=== PATIENT | female | born 1945 | race Caucasian/White ===

== ENCOUNTER 2018-05-24 10:05 | Outpatient (RCR) | payer MEDICARE ==
--- NOTE | 2018-05-17 13:19 | NUR ---
S/O: GELY STOKES is a 73 year old Female who presented to cardiac/pulmonary consult. Her past medical history and current medications and treatment were discussed. A/P: All medications in patient's chart were viewed. No corrections were needed . Patient has good understanding of prescribed medications. The patient had the following questions or concerns: Mrs. Stokes was concerned about muscle discomfort she had been experiencing with her Atorvastatin. Counseled patient that some discomfort is normal, but to bring up her concerns with her PCP at the next visit when her labs are taken and there might be something over the counter she can use to relieve discomfort if she is to stay on the medication. Patient also expressed she had recently been started on Lisinopril after her heart surgery and had been experiencing a cough since starting the medication. Explained to her that this is normal for some people to experience and if the cough really starts bothering her to let her PCP know and there may be other blood pressure options for her that are less likely to cause this cough side effect. The patient indicated that she has experienced the following side effects: Muscle discomfort and Cough. It was recommended that she bring her concerns to her PCP as these are common side effects of her current medication therapy and there may be other options that are less likely to cause these side effects. Potential side effects were discussed such as: Symptoms of low blood sugar, ACEI side effects, Statin side effects. How to monitor her disease states effectively through blood pressure and sugar monitoring. The patient was instructed to contact pharmacy if she had further questions at a next visit.
[~2018-05-24 10:05] MED LIST: ALLOPURINOL300 MG PO; AMARYL2 MG PO; AMARYL4 MG PO; AMLOD/BENAZP1 CA2 PO; ANTIVERT OR; ANTIVERT PO; ANTIVERT25 MG PO; ASPIRIN81 MG PO; ATIVAN0.5 MG OR; BENADRYL 50MG C50 MG OR; CARVEDILOL25 MG PO; CEPHALEXIN500 MG OR; CYANOCOBALAM1000 MCG IM; DIFLUCAN150 MG PO; FENOFIBRATE134 MG; FENOFIBRATE134 MG PO; FLEXERIL PO; FLEXERIL10 MG PO; FUROSEMIDE40 MG PO; GLIPIZIDE10 MG PO; GLIPIZIDE5 MG PO; GLUCOPHAGE500 MG PO; HYDRALAZINE50 MG PO; INVOKANA300 MG PO; JANUVIA100 MG PO; LEVOTHYROXIN100 MCG PO; LEVOTHYROXIN125 MCG PO; LIPITOR10 M1 PO; LISINOPRIL10 MG PO; LOPRESSOR50 MG PO; LORAZEPAM0.5 MG PO; LORAZEPAM1 MG PO; LORTAB 5 OR; LOTREL 2.5/101 CAP PO; LOTREL1 CA1 PO; MACRODANTIN100 MG OR; MAG OXIDE400 MG PO; METFORMIN500 MG PO; METOPROLOL TART50 MG PO; NEOSPORIN28 GM EX; RENA-VIT1 PO; TAM75CAP PO; TOPROL XL50 MG OR; TRICOR48 MG OR; TRULICITY0.75 MG/0.; ULTRAM50 M1 OR; VICTOZA18 MG/3 ML SC; ZITHROMAX500 MG OR
== END 2018-05-24 11:35 | disposition still patient (30) ==
LOC: CR 10:05
PROVIDERS: ATTEND Internal Medicine Cardiovascular Disease
DX: Z95.1 Presence of aortocoronary bypass graft (principal)

== ENCOUNTER 2018-09-01 08:23 | Day surgery (SDC) | payer MEDICARE ==
[2018-09-01 10:32] VITALS: BP 151/69
== END 2018-09-01 10:51 | disposition home or self-care (01) ==
LOC: ENDO 08:23 → ORM 19:50 → ENDO 19:50 → ORM 21:15
PROVIDERS: ATTEND Internal Medicine Gastroenterology
PROC: 0DBG8ZX Excision of Left Large Intestine, Via Natural or Artificial Opening Endoscopic, Diagnostic (ICD-10-PCS; principal; 2018-09-01)
PROC: 0DBF8ZX Excision of Right Large Intestine, Via Natural or Artificial Opening Endoscopic, Diagnostic (ICD-10-PCS; 2018-09-01)
PROC: 0DB98ZX Excision of Duodenum, Via Natural or Artificial Opening Endoscopic, Diagnostic (ICD-10-PCS; 2018-09-01)
PROC: 0DB78ZX Excision of Stomach, Pylorus, Via Natural or Artificial Opening Endoscopic, Diagnostic (ICD-10-PCS; 2018-09-01)
PROC: 0DB48ZX Excision of Esophagogastric Junction, Via Natural or Artificial Opening Endoscopic, Diagnostic (ICD-10-PCS; 2018-09-01)
DX: R19.7 Diarrhea, unspecified (principal); D64.9 Anemia, unspecified; K64.4 Residual hemorrhoidal skin tags; K64.8 Other hemorrhoids; K29.70 Gastritis, unspecified, without bleeding; K20.9 Esophagitis, unspecified; K44.9 Diaphragmatic hernia without obstruction or gangrene; K29.50 Unspecified chronic gastritis without bleeding; E11.9 Type 2 diabetes mellitus without complications; I10 Essential (primary) hypertension

== ENCOUNTER 2020-07-30 14:39 | Emergency (ER) | payer MEDICARE ==
[2020-07-30 14:39] VITALS: BP 93/52
[2020-07-30 15:50] LABS: HEMATOCRIT 32.4 % (37.0-47.0); HEMOGLOBIN 10.6 g/dl (12.0-16.0); IMMATURE GRANULOCYTES 0.2 % (0.0-5.0); MEAN CELL VOLUME 99.7 fL CALC (80.0-100.0); MEAN CORPUSCULAR HGB 32.6 pG CALC (26.0-32.0); MEAN CORPUSCULAR HGB CONC 32.7 g/dL CAL (32.0-36.0); NEUT# 3.46 thou/uL (2.00-7.15); RED BLOOD COUNT 3.25 mill/uL (4.20-5.60); RED CELL DISTRI WIDTH 15.1 % (11.5-15.5)
[2020-07-30 16:06] LABS: ALBUMIN 3.7 g/dL (3.2-5.0); CREATININE 1.5 mg/dL (0.5-1.0); MAGNESIUM 1.6 mg/dL (1.6-2.3); POTASSIUM 4.7 mmol/l (3.5-5.1); TOTAL PROTEIN 6.8 g/dL (6.3-8.2)
[2020-07-30 16:15] LABS: BILIRUBIN, TOTAL 0.6 mg/dL (0.0-1.4)
[2020-07-30 16:30] LABS: ACT PARTIAL THROMBO TIME 23.7 SECONDS (20.0-32.5); PROTHROMBIN TIME 10.3 SECONDS (9.0-12.5)
== END 2020-07-30 17:23 | disposition short-term general hospital (02) ==
LOC: ED 14:39
DX: I21.4 Non-ST elevation (NSTEMI) myocardial infarction (principal); I95.9 Hypotension, unspecified; E11.9 Type 2 diabetes mellitus without complications; I10 Essential (primary) hypertension; Z95.1 Presence of aortocoronary bypass graft; Z91.041 Radiographic dye allergy status; Z20.822 Contact with and (suspected) exposure to COVID-19

== ENCOUNTER 2020-08-12 13:31 | Emergency (ER) | payer MEDICARE ==
[~2020-08-12] VITALS: Ht 172.7 cm; Wt 104.5 kg
[2020-08-12 14:33] LABS: HEMATOCRIT 32.4 % (37.0-47.0); HEMOGLOBIN 10.4 g/dl (12.0-16.0); IMMATURE GRANULOCYTES 0.3 % (0.0-5.0); MEAN CELL VOLUME 101.6 fL CALC (80.0-100.0); MEAN CORPUSCULAR HGB 32.6 pG CALC (26.0-32.0); MEAN CORPUSCULAR HGB CONC 32.1 g/dL CAL (32.0-36.0); NEUT# 3.7 thou/uL (2.00-7.15); RED BLOOD COUNT 3.19 mill/uL (4.20-5.60); RED CELL DISTRI WIDTH 15.6 % (11.5-15.5)
[2020-08-12 16:37] LABS: ALBUMIN 3.7 g/dL (3.2-5.0); ALKALINE PHOSPHATASE 92 u/l (38-126); ANION GAP 12 (6-22 (CALC)); BILIRUBIN, TOTAL 0.5 mg/dL (0.0-1.4); BUN 16 mg/dL (8-23); BUN/CREATININE RATIO 18 (12-20 (CALC)); CARBON DIOXIDE 20 mmol/l (22-30); CHLORIDE 107 mmol/l (95-108); CREATININE 0.9 mg/dL (0.5-1.0); GFR > 60 ML/MIN (>=60 (CALC)); GFR FOR AFR.AMER. > 60 ML/MIN (>=60 (CALC)); POTASSIUM 4.4 mmol/l (3.5-5.1); SGOT/AST 22 u/l (9-36); SODIUM 135 mmol/l (137-146); TOTAL PROTEIN 7.1 g/dL (6.3-8.2)
[2020-08-12 16:47] LABS: ACT PARTIAL THROMBO TIME 25.4 SECONDS (20.0-32.5); PROTHROMBIN TIME 9.9 SECONDS (9.0-12.5)
[2020-08-12 21:34] VITALS: BP 156/84
== END 2020-08-12 21:35 | disposition short-term general hospital (02) ==
LOC: ED 13:31
DX: S32.040A Wedge compression fracture of fourth lumbar vertebra, initial encounter for closed fracture (principal); E11.9 Type 2 diabetes mellitus without complications; I10 Essential (primary) hypertension; S30.1XXA Contusion of abdominal wall, initial encounter; S40.012A Contusion of left shoulder, initial encounter; W19.XXXA Unspecified fall, initial encounter; Z95.1 Presence of aortocoronary bypass graft; Z87.440 Personal history of urinary (tract) infections

== ENCOUNTER 2023-09-27 12:05 | Observation (INO) | payer MEDICARE ==
[~2023-09-27] VITALS: Ht 172.7 cm; Wt 100.2 kg
[2023-09-27] VITALS (31 sets, daily range): BP systolic 92–140; BP diastolic 46–114
[2023-09-27] MEDS ORDERED: Diph, Acellular Pertussis, Tet 0.5 ML/VIAL (Tdap) SDV IM ONE (12:20)
[2023-09-27 12:43] LABS: BASO% 0.8 % (0-3); HEMATOCRIT 36.9 % (37.0-47.0); HEMOGLOBIN 11.8 g/dl (12.0-16.0); IMMATURE GRANULOCYTES 0.5 % (0.0-5.0); LYMPH% 31.2 % (15-41); MEAN CELL VOLUME 103.4 fL CALC (80.0-100.0); MEAN CORPUSCULAR HGB 33.1 pG CALC (26.0-32.0); MONO% 7.2 % (2-13); NEUT# 3.77 thou/uL (2.00-7.15); NEUT% 57.3 % (42-76); RED BLOOD COUNT 3.57 mill/uL (4.20-5.60); RED CELL DISTRI WIDTH 14.1 % (11.5-15.5)
[2023-09-27 13:14] LABS: ALBUMIN 4.4 g/dL (3.2-5.0); BILIRUBIN, TOTAL 0.6 mg/dL (0.02-1.3); CREATININE 1.4 mg/dL (0.5-1.0); TOTAL PROTEIN 7.8 g/dL (6.3-8.2)
[2023-09-27 13:15] LABS: POTASSIUM 5.4 mmol/l (3.5-5.1)
[2023-09-27] MEDS ORDERED: SODIUM CHLORIDE 0.9% 1,000 ML IV ONE (13:40)
[2023-09-27 15:51] LABS: URINE BILIRUBIN - DIPSTICK Negative (NEGATIVE); URINE BLOOD DIPSTICK Negative (NEGATIVE); URINE GLUCOSE - DIPSTICK Negative (NEGATIVE); URINE KETONE Negative (NEGATIVE); URINE LEUK ESTERASE Negative (NEGATIVE); URINE PH 5.5 (4.5-8.0); URINE PROTEIN - DIPSTICK Negative (NEG-TRACE); URINE UROBILINOGEN - DIPSTICK 0.2 E.U./dL (0.2)
[2023-09-27 15:53] LABS: URINE COLOR Yellow; URINE NITRITE - DIPSTICK Positive (Negative)
[2023-09-27 16:00] LABS: URINE BACTERIA MODERATE hpf
[2023-09-27] MEDS ORDERED: cefTRIAXone SODIUM 2 GM in SODIUM CHLORIDE 0.9% 100 ML IV ONE (16:15)
[2023-09-27] MEDS ORDERED: ATORVASTATIN CA10 MG PO (17:14)
[2023-09-27] MEDS ORDERED: GLIPIZIDE5 M2 PO (17:15)
[2023-09-27] MEDS ORDERED: MAGNESIUM OXID400 M3 PO (17:16)
[2023-09-27] MEDS ORDERED: LASIX 40 MG TAB40 MG PO (17:17)
[2023-09-27] MEDS ORDERED: ATIVAN1 M1 PO (17:18)
[2023-09-27] MEDS ORDERED: TRULICITY0.75 MG/0. SC (17:20)
[2023-09-27] MEDS ORDERED: MECLIZINE25 MG PO (17:21)
[2023-09-27] MEDS ORDERED: METFORMIN500 M2 PO (17:24)
[2023-09-27] MEDS ORDERED: SODIUM CHLORIDE 0.9% 1,000 ML IV PRN (18:25)
[2023-09-27] MEDS ORDERED: ACETAMINOPHEN 325 MG/TAB PO PRN (18:25)
[2023-09-27] MEDS ORDERED: MAGNESIUM HYDROXIDE 30 ML UDC PO PRN (18:25)
[2023-09-27] MEDS ORDERED: LORazepam 1 MG/TAB PO PRN (18:30)
[2023-09-27] MEDS ORDERED: MECLIZINE HCL 25 MG/TAB PO PRN (18:30)
[2023-09-27] MEDS ORDERED: hydrALAZINE HCL 20 MG/ML VIAL(1 ML) IV PRN (18:30)
[2023-09-27] MEDS ORDERED: DEXTROSE 250 ML IV PRN (18:35)
[2023-09-27] MEDS ORDERED: ENOXAPARIN SODIUM 40 MG/0.4 ML SYR SC SCH (21:00)
[2023-09-27] MEDS ORDERED: INSULIN LISPRO 100 UNITS/ML ML SC SCH (21:00)
[2023-09-27] MEDS ORDERED: CARVEDILOL 25 MG/TAB PO SCH (21:00)
[2023-09-27] MEDS ORDERED: COLCHICINE0.6 M2 (23:10)
[2023-09-28] VITALS (9 sets, daily range): BP systolic 109–147; BP diastolic 51–78
[2023-09-28 05:48] LABS: BASO% 0.7 % (0-3); EOS% 2.3 % (0-8); HEMATOCRIT 32.4 % (37.0-47.0); HEMOGLOBIN 10.4 g/dl (12.0-16.0); IMMATURE GRANULOCYTES 0.2 % (0.0-5.0); LYMPH% 37.6 % (15-41); MEAN CELL VOLUME 103.5 fL CALC (80.0-100.0); MEAN CORPUSCULAR HGB 33.2 pG CALC (26.0-32.0); MEAN CORPUSCULAR HGB CONC 32.1 g/dL CAL (32.0-36.0); MONO% 9.5 % (2-13); NEUT# 3.04 thou/uL (2.00-7.15); NEUT% 49.7 % (42-76); RED BLOOD COUNT 3.13 mill/uL (4.20-5.60); RED CELL DISTRI WIDTH 14.1 % (11.5-15.5)
[2023-09-28] MEDS ORDERED: LEVOTHYROXINE SODIUM 125 MCG/TAB PO SCH (06:00)
[2023-09-28 06:03] LABS: BILIRUBIN, TOTAL 0.5 mg/dL (0.02-1.3); CHOLESTEROL HDL RATIO 4.3 (<4.4 (CALC)); CREATININE 1.1 mg/dL (0.5-1.0); MAGNESIUM 1.4 mg/dL (1.6-2.3); POTASSIUM 4.7 mmol/l (3.5-5.1)
[2023-09-28 06:13] LABS: ALBUMIN 3.4 g/dL (3.2-5.0); TOTAL PROTEIN 6.2 g/dL (6.3-8.2)
[2023-09-28] MEDS ORDERED: MAGNESIUM SULFATE HEPTAHYDRATE 50 ML IV SCH (07:00)
[2023-09-28] MEDS ORDERED: ASPIRIN 81 MG/TAB PO SCH (09:00)
[2023-09-28] MEDS ORDERED: ALLOPURINOL 100 MG/TAB PO SCH (09:00)
[2023-09-28] MEDS ORDERED: FUROSEMIDE 40 MG/TAB PO SCH (09:00)
[2023-09-29 03:38] VITALS: BP 137/63
[2023-09-29 05:28] LABS: ALBUMIN 3.5 g/dL (3.2-5.0); BILIRUBIN, TOTAL 0.7 mg/dL (0.02-1.3); MAGNESIUM 1.6 mg/dL (1.6-2.3); POTASSIUM 4.8 mmol/l (3.5-5.1); TOTAL PROTEIN 6.6 g/dL (6.3-8.2)
[2023-09-29 05:50] LABS: BASO% 3.3 % (0-3); EOS% 3.9 % (0-8); HEMOGLOBIN 10.5 g/dl (12.0-16.0); LYMPH% 39.8 % (15-41); MEAN CELL VOLUME 104.8 fL CALC (80.0-100.0); MEAN CORPUSCULAR HGB 33.3 pG CALC (26.0-32.0); MEAN CORPUSCULAR HGB CONC 31.8 g/dL CAL (32.0-36.0); MONO% 7.8 % (2-13); NEUT# 2.33 thou/uL (2.00-7.15); NEUT% 45.2 % (42-76); RED BLOOD COUNT 3.15 mill/uL (4.20-5.60); RED CELL DISTRI WIDTH 14.4 % (11.5-15.5)
[2023-09-29] MEDS ORDERED: OMNICEF300 MG PO (06:21)
[2023-09-29 06:36] VITALS: BP 164/68
[2023-09-29 10:30] VITALS: BP 109/61
== END 2023-09-29 15:45 ==
LOC: ED 12:05 → ED-I 13:21 → ED 13:21 → ED-I 16:02 → ED 16:30 → MS2 16:31
PROVIDERS: Family Medicine; Nurse Practitioner Family; ADMIT Student in an Organized Health Care Education/Training Program; ATTEND Student in an Organized Health Care Education/Training Program
PROC: 0HQ0XZZ Repair Scalp Skin, External Approach (ICD-10-PCS; principal; 2023-09-27)
DX: N39.0 Urinary tract infection, site not specified (principal); B96.1 Klebsiella pneumoniae [K. pneumoniae] as the cause of diseases classified elsewhere; N17.9 Acute kidney failure, unspecified; H66.91 Otitis media, unspecified, right ear; R79.89 Other specified abnormal findings of blood chemistry; E83.42 Hypomagnesemia; S01.01XA Laceration without foreign body of scalp, initial encounter; S89.92XA Unspecified injury of left lower leg, initial encounter; S89.91XA Unspecified injury of right lower leg, initial encounter; I10 Essential (primary) hypertension; E11.65 Type 2 diabetes mellitus with hyperglycemia; I25.10 Atherosclerotic heart disease of native coronary artery without angina pectoris; E03.9 Hypothyroidism, unspecified; W01.190A Fall on same level from slipping, tripping and stumbling with subsequent striking against furniture, initial encounter; Z95.1 Presence of aortocoronary bypass graft; Z87.440 Personal history of urinary (tract) infections; Z79.82 Long term (current) use of aspirin; Z95.0 Presence of cardiac pacemaker
CPT/HCPCS: J1650; J3475

== ENCOUNTER 2023-11-01 22:01 | Emergency (ER) | payer MEDICARE ==
[2023-11-01] VITALS (7 sets, daily range): BP systolic 147–172; BP diastolic 80–87
[~2023-11-01] VITALS: Ht 172.7 cm; Wt 102.2 kg
[~2023-11-01 22:01] MED LIST changes: +ATIVAN1 M1 PO; +ATORVASTATIN CA10 MG PO; +COLCHICINE0.6 M2; +GLIPIZIDE5 M2 PO; +LASIX 40 MG TAB40 MG PO; +MAGNESIUM OXID400 M3 PO; +MECLIZINE25 MG PO; +METFORMIN500 M2 PO; +OMNICEF300 MG PO; +TRULICITY0.75 MG/0. SC
[2023-11-01] MEDS ORDERED: SODIUM CHLORIDE 0.9% 1,000 ML IV ONE (22:35)
[2023-11-01 23:11] LABS: BASO% 0.6 % (0-3); EOS% 3.6 % (0-8); HEMATOCRIT 34.4 % (37.0-47.0); HEMOGLOBIN 10.8 g/dl (12.0-16.0); IMMATURE GRANULOCYTES 0.1 % (0.0-5.0); LYMPH% 41.1 % (15-41); MEAN CELL VOLUME 106.8 fL CALC (80.0-100.0); MEAN CORPUSCULAR HGB 33.5 pG CALC (26.0-32.0); MEAN CORPUSCULAR HGB CONC 31.4 g/dL CAL (32.0-36.0); MONO% 9.8 % (2-13); NEUT# 3.01 thou/uL (2.00-7.15); NEUT% 44.8 % (42-76); RED BLOOD COUNT 3.22 mill/uL (4.20-5.60); RED CELL DISTRI WIDTH 15.4 % (11.5-15.5)
[2023-11-01 23:14] LABS: URINE BILIRUBIN - DIPSTICK Negative (NEGATIVE); URINE BLOOD DIPSTICK Negative (NEGATIVE); URINE GLUCOSE - DIPSTICK Negative (NEGATIVE); URINE KETONE Negative (NEGATIVE); URINE LEUK ESTERASE Negative (NEGATIVE); URINE NITRITE - DIPSTICK Negative (Negative); URINE PH 5.5 (4.5-8.0); URINE PROTEIN - DIPSTICK Negative (NEG-TRACE); URINE UROBILINOGEN - DIPSTICK 0.2 E.U./dL (0.2)
[2023-11-01 23:17] LABS: URINE COLOR Yellow
[2023-11-01 23:23] LABS: ALBUMIN 4.3 g/dL (3.2-5.0); BILIRUBIN, TOTAL 0.5 mg/dL (0.02-1.3); CREATININE 1.2 mg/dL (0.5-1.0); MAGNESIUM 1.9 mg/dL (1.6-2.3); POTASSIUM 4.2 mmol/l (3.5-5.1); TOTAL PROTEIN 7.6 g/dL (6.3-8.2)
[2023-11-01 23:28] LABS: ACT PARTIAL THROMBO TIME 20.3 SECONDS (20.0-32.5)
[2023-11-01 23:39] LABS: PROTHROMBIN TIME 9.7 SECONDS (9.0-12.5)
[2023-11-02] VITALS: BP 156/77
[2023-11-02 00:41] VITALS: BP 156/77
== END 2023-11-02 00:41 | disposition home or self-care (01) ==
LOC: ED 22:01
PROVIDERS: Family Medicine
DX: R04.0 Epistaxis (principal); F39 Unspecified mood [affective] disorder; I10 Essential (primary) hypertension; E11.9 Type 2 diabetes mellitus without complications; I25.10 Atherosclerotic heart disease of native coronary artery without angina pectoris; E03.9 Hypothyroidism, unspecified; Z95.1 Presence of aortocoronary bypass graft; Z95.0 Presence of cardiac pacemaker; Z79.82 Long term (current) use of aspirin; Z79.84 Long term (current) use of oral hypoglycemic drugs

== ENCOUNTER 2023-12-06 17:45 | Observation (INO) | payer MEDICARE ==
[~2023-12-06] VITALS: Ht 172.7 cm; Wt 99.0 kg
[2023-12-06] VITALS (13 sets, daily range): BP systolic 118–184; BP diastolic 60–74
[2023-12-06] MEDS ORDERED: hydrALAZINE HCL 20 MG/ML VIAL(1 ML) IV ONE (17:50)
[2023-12-06 18:31] LABS: BASO% 0.4 % (0-3); EOS% 1.5 % (0-8); HEMATOCRIT 35.9 % (37.0-47.0); HEMOGLOBIN 11.5 g/dl (12.0-16.0); IMMATURE GRANULOCYTES 0.6 % (0.0-5.0); LYMPH% 38.3 % (15-41); MEAN CELL VOLUME 102.6 fL CALC (80.0-100.0); MEAN CORPUSCULAR HGB 32.9 pG CALC (26.0-32.0); MONO% 9.1 % (2-13); NEUT# 2.38 thou/uL (2.00-7.15); NEUT% 50.1 % (42-76); RED BLOOD COUNT 3.5 mill/uL (4.20-5.60); RED CELL DISTRI WIDTH 14.2 % (11.5-15.5)
[2023-12-06 18:39] LABS: ALBUMIN 4.1 g/dL (3.2-5.0); ALKALINE PHOSPHATASE 100 u/l (38-126); ANION GAP 12 (6-22 (CALC)); BILIRUBIN, TOTAL 0.5 mg/dL (0.02-1.3); BUN 26 mg/dL (8-23); BUN/CREATININE RATIO 23 (12-20 (CALC)); CARBON DIOXIDE 23 mmol/l (22-30); CHLORIDE 106 mmol/l (95-108); CREATININE 1.1 mg/dL (0.5-1.0); ESTIMATED GFR 51 ML/MIN (>=90 (CALC)); POTASSIUM 4.6 mmol/l (3.5-5.1); SGOT/AST 32 u/l (9-36); SODIUM 136 mmol/l (137-146); TOTAL PROTEIN 7.6 g/dL (6.3-8.2)
[2023-12-06] MEDS ORDERED: AZITHROMYCIN 500 MG in SODIUM CHLORIDE 0.9% 250 ML IV ONE (19:50)
[2023-12-06] MEDS ORDERED: methylPREDNISolone Sod Succ 40 MG/ML SDV IV ONE (19:50)
[2023-12-07 00:26] VITALS: BP 126/75
[2023-12-07] MEDS ORDERED: ACETAMINOPHEN 325 MG/TAB PO PRN (00:40)
[2023-12-07] MEDS ORDERED: FUROSEMIDE20 MG PO (00:51)
[2023-12-07] MEDS ORDERED: CARVEDILOL12.5 MG PO (00:53)
[2023-12-07 05:04] VITALS: BP 118/73
[2023-12-07] MEDS ORDERED: SODIUM CHLORIDE 0.9% 1,000 ML IV PRN (07:45)
[2023-12-07] MEDS ORDERED: IPRATROPIUM-Albuterol 0.5MG-2.5MG/3 ML NEB PRN (07:45)
[2023-12-07 07:46] VITALS: BP 172/83
[2023-12-07 08:23] LABS: ALBUMIN 3.6 g/dL (3.2-5.0); BILIRUBIN, TOTAL 0.3 mg/dL (0.02-1.3); MAGNESIUM 1.8 mg/dL (1.6-2.3); TOTAL PROTEIN 6.8 g/dL (6.3-8.2)
[2023-12-07] MEDS ORDERED: MECLIZINE HCL 25 MG/TAB PO SCH (09:00)
[2023-12-07] MEDS ORDERED: CARVEDILOL 6.25 MG/TAB PO SCH (09:00)
[2023-12-07] MEDS ORDERED: ALLOPURINOL 100 MG/TAB PO SCH (09:00)
[2023-12-07] MEDS ORDERED: ASPIRIN 81 MG/TAB PO SCH (09:00)
[2023-12-07] MEDS ORDERED: GLIPIZIDE PO SCH (09:00)
[2023-12-07] MEDS ORDERED: FUROSEMIDE 20 MG/TAB PO SCH (09:00)
[2023-12-07] MEDS ORDERED: DEXTROSE 250 ML IV PRN (10:55)
[2023-12-07] MEDS ORDERED: INSULIN LISPRO 100 UNITS/ML ML SC SCH (11:00)
[2023-12-07] MEDS ORDERED: DEXAMETHASONE 2 MG/TAB TAB PO SCH (12:00)
[2023-12-07] MEDS ORDERED: LISINOPRIL 10 MG/TAB PO SCH (13:00)
[2023-12-07 16:03] VITALS: BP 159/73
[2023-12-07 18:30] VITALS: BP 135/63
[2023-12-07] MEDS ORDERED: AZITHROMYCIN 500 MG in SODIUM CHLORIDE 0.9% 250 ML IV SCH (21:00)
[2023-12-08] VITALS (8 sets, daily range): BP systolic 145–180; BP diastolic 66–80
[2023-12-08 05:08] LABS: BASO% 0.4 % (0-3); HEMATOCRIT 32.6 % (37.0-47.0); HEMOGLOBIN 10.8 g/dl (12.0-16.0); IMMATURE GRANULOCYTES 0.4 % (0.0-5.0); MEAN CELL VOLUME 101.9 fL CALC (80.0-100.0); MEAN CORPUSCULAR HGB 33.8 pG CALC (26.0-32.0); MEAN CORPUSCULAR HGB CONC 33.1 g/dL CAL (32.0-36.0); MONO% 13.1 % (2-13); NEUT# 1.58 thou/uL (2.00-7.15); NEUT% 59.1 % (42-76); RED BLOOD COUNT 3.2 mill/uL (4.20-5.60); RED CELL DISTRI WIDTH 13.9 % (11.5-15.5)
[2023-12-08 05:16] LABS: ALBUMIN 3.4 g/dL (3.2-5.0); BILIRUBIN, TOTAL 0.3 mg/dL (0.02-1.3); MAGNESIUM 1.8 mg/dL (1.6-2.3); POTASSIUM 4.8 mmol/l (3.5-5.1); TOTAL PROTEIN 6.5 g/dL (6.3-8.2)
[2023-12-08] MEDS ORDERED: LEVOTHYROXINE SODIUM 125 MCG/TAB PO SCH (06:00)
[2023-12-08] MEDS ORDERED: FLUTICASONE PROPIONATE (Nasal) 50MCG/SPRAY INH SCH (12:00)
[2023-12-08] MEDS ORDERED: FUROSEMIDE 40 MG/4 ML SDV IV ONE (22:45)
[2023-12-08] MEDS ORDERED: ALBUTEROL SULFATE 8 GM INH IN PRN (22:45)
[2023-12-09 04:23] VITALS: BP 131/71
[2023-12-09 05:53] LABS: BASO% 0.2 % (0-3); EOS% 0.2 % (0-8); HEMATOCRIT 37.5 % (37.0-47.0); HEMOGLOBIN 12.5 g/dl (12.0-16.0); IMMATURE GRANULOCYTES 0.2 % (0.0-5.0); MEAN CELL VOLUME 102.2 fL CALC (80.0-100.0); MEAN CORPUSCULAR HGB 34.1 pG CALC (26.0-32.0); MEAN CORPUSCULAR HGB CONC 33.3 g/dL CAL (32.0-36.0); NEUT# 3.49 thou/uL (2.00-7.15); NEUT% 68.4 % (42-76); RED BLOOD COUNT 3.67 mill/uL (4.20-5.60); RED CELL DISTRI WIDTH 13.9 % (11.5-15.5)
[2023-12-09 05:56] LABS: ALBUMIN 3.9 g/dL (3.2-5.0); MAGNESIUM 1.7 mg/dL (1.6-2.3); POTASSIUM 5.1 mmol/l (3.5-5.1); TOTAL PROTEIN 7.4 g/dL (6.3-8.2)
[2023-12-09 06:00] LABS: BILIRUBIN, TOTAL 0.6 mg/dL (0.02-1.3)
[2023-12-09 07:22] VITALS: BP 143/65
[2023-12-09] MEDS ORDERED: DOXYCYCLINE100 MG PO (09:19)
[2023-12-09] MEDS ORDERED: PREDNISONE10 MG PO (09:20)
[2023-12-09 11:06] VITALS: BP 136/68
== END 2023-12-09 12:45 | disposition home or self-care (01) ==
LOC: ED 17:45 → ED-I 22:15 → ED 22:40 → MS2 22:41
PROVIDERS: Family Medicine; Nurse Practitioner Family; ADMIT Internal Medicine; ATTEND Internal Medicine
DX: U07.1 COVID-19 (principal); J12.82 Pneumonia due to coronavirus disease 2019; J96.01 Acute respiratory failure with hypoxia; N17.9 Acute kidney failure, unspecified; H66.91 Otitis media, unspecified, right ear; I10 Essential (primary) hypertension; E11.9 Type 2 diabetes mellitus without complications; D64.9 Anemia, unspecified; I25.10 Atherosclerotic heart disease of native coronary artery without angina pectoris; E03.9 Hypothyroidism, unspecified; Z95.1 Presence of aortocoronary bypass graft; Z95.0 Presence of cardiac pacemaker; Z79.84 Long term (current) use of oral hypoglycemic drugs
CPT/HCPCS: G0378

== ENCOUNTER 2024-05-22 12:36 | Inpatient (IN) | payer MEDICARE ==
[~2024-05-22] VITALS: Ht 172.7 cm; Wt 104.0 kg
[2024-05-22] VITALS (25 sets, daily range): BP systolic 145–180; BP diastolic 71–105
[~2024-05-22 12:36] MED LIST changes: +CARVEDILOL12.5 MG PO; +DOXYCYCLINE100 MG PO; +FUROSEMIDE20 MG PO; +PREDNISONE10 MG PO
--- NOTE | 2024-05-22 12:51 | NUR ---
PATIENT TO ROOM 8 VIA WHEELCHAIR
[2024-05-22 13:07] LABS: BASO% 0.1 % (0-3); EOS% 0.1 % (0-8); HEMATOCRIT 38.7 % (37.0-47.0); HEMOGLOBIN 12.7 g/dl (12.0-16.0); IMMATURE GRANULOCYTES 0.2 % (0.0-5.0); LYMPH% 12.4 % (15-41); MEAN CELL VOLUME 102.1 fL CALC (80.0-100.0); MEAN CORPUSCULAR HGB 33.5 pG CALC (26.0-32.0); MEAN CORPUSCULAR HGB CONC 32.8 g/dL CAL (32.0-36.0); MONO% 2.9 % (2-13); NEUT# 7.03 thou/uL (2.00-7.15); NEUT% 84.3 % (42-76); RED BLOOD COUNT 3.79 mill/uL (4.20-5.60); RED CELL DISTRI WIDTH 14.1 % (11.5-15.5)
[2024-05-22 13:36] LABS: ALBUMIN 4.2 g/dL (3.2-5.0); BILIRUBIN, TOTAL 0.5 mg/dL (0.02-1.3); CREATININE 1.3 mg/dL (0.5-1.0); TOTAL PROTEIN 7.5 g/dL (6.3-8.2)
--- NOTE | 2024-05-22 13:44 | NUR ---
DAUGHTER REMAINS BEDSIDE
[2024-05-22 13:46] LABS: POTASSIUM 5.3 mmol/l (3.5-5.1)
[2024-05-22] MEDS ORDERED: DiphenhydrAMINE HCL 50 MG/ML SDV IV ONE (13:50)
[2024-05-22] MEDS ORDERED: methylPREDNISolone SODIUM SUCC 125 MG/2 ML SDV IV ONE (13:50)
[2024-05-22] MEDS ORDERED: FAMOTIDINE 10MG/ML 2ML SDV IV ONE (13:50)
[2024-05-22] MEDS ORDERED: SODIUM CHLORIDE 0.9% 1,000 ML IV ONE (13:50)
[2024-05-22 17:59] LABS: URINE BILIRUBIN - DIPSTICK Negative (NEGATIVE); URINE BLOOD DIPSTICK Negative (NEGATIVE); URINE COLOR Yellow; URINE GLUCOSE - DIPSTICK Negative (NEGATIVE); URINE KETONE Negative (NEGATIVE); URINE LEUK ESTERASE Negative (NEGATIVE); URINE NITRITE - DIPSTICK Negative (Negative); URINE PROTEIN - DIPSTICK Negative (NEG-TRACE); URINE SPECIFIC GRAVITY 1.015; URINE UROBILINOGEN - DIPSTICK 0.2 E.U./dL (0.2)
--- NOTE | 2024-05-22 18:05 | NUR ---
[facility]
[2024-05-22 18:07] LABS: URINE BACTERIA MANY hpf; URINE SQUAMOUS EPITHELIAL CELL FEW EPI/hpf (0-FEW)
[2024-05-22] MEDS ORDERED: KETOROLAC TROMETHAMINE 15 MG/ML SDV IV ONE (18:10)
[2024-05-22] MEDS ORDERED: ORPHENADRINE CITRATE 30 MG/ML AMP IV ONE (18:10)
--- NOTE | 2024-05-22 18:32 | NUR ---
PATIENT MEDICATED PER ORDER
--- NOTE | 2024-05-22 19:00 | NUR ---
RECIEVED REPORT FROM JULIANNA JEFFERS. PT AWAITING FOR ADMISSION TO HOSPITAL.
--- NOTE | 2024-05-22 19:03 | NUR ---
REPORT TO EVELYN JEFFERS
--- NOTE | 2024-05-22 19:04 | NUR ---
REPORT TO EVELYN JEFFRES
[2024-05-22] MEDS ORDERED: SODIUM CHLORIDE 0.9% 1,000 ML IV PRN (20:00)
[2024-05-22] MEDS ORDERED: MAGNESIUM HYDROXIDE 30 ML UDC PO PRN (20:00)
[2024-05-22] MEDS ORDERED: ACETAMINOPHEN 325 MG/TAB PO PRN (20:00)
[2024-05-22] MEDS ORDERED: HYDROcodone 5 MG/Acetaminophen 325 MG/COMBO PO PRN (20:00)
[2024-05-22] MEDS ORDERED: DEXTROSE 250 ML IV PRN (20:05)
[2024-05-22] MEDS ORDERED: LORazepam 1 MG/TAB PO PRN (20:05)
--- NOTE | 2024-05-22 20:32 | NUR ---
CALLED [facility] TO GIVE PT REPORT, NURSE ATTENDING OTHER PTS AT THIS TIME. WILL GET A CALL BACK FROM NURSE FOR REPORT.
--- NOTE | 2024-05-22 20:49 | NUR ---
CALLED [facility] GAVE PT REORT TO DANA JEFFERS.
--- NOTE | 2024-05-22 20:53 | NUR ---
PT TRANSPORTED TO [facility] [place] [facility] [place] VIA STRETCHER.
[2024-05-22] MEDS ORDERED: ENOXAPARIN SODIUM 40 MG/0.4 ML SYR SC SCH (21:00)
[2024-05-22] MEDS ORDERED: CARVEDILOL 6.25 MG/TAB PO SCH (21:00)
[2024-05-22] MEDS ORDERED: INSULIN LISPRO 100 UNITS/ML ML SC SCH (21:00)
[2024-05-22] MEDS ORDERED: ENTRESTO 49-511 TAB (21:25)
[2024-05-22] MEDS ORDERED: HYDROmorphone HCL 2 MG/AMP IV PRN (22:00)
[2024-05-23] VITALS (7 sets, daily range): BP systolic 127–154; BP diastolic 71–83
--- NOTE | 2024-05-23 00:37 | NUR ---
RECEIVED REPORT FROM ED NURSE LENA, PATIENT ARRIVED MS UNIT AT 2101 TRANSPORTED VIA BED, ACCOMPANIED BY DAUGHTER. PATIENT IS HARD OF HEARING. PATIENT WALKED FROM STRETCHER TO BED MAX ASSIST, PATIENT IV ON LFA G 22 PATENT FLUSHES WELL ADMISSION ASSESSMENT COMPLETED, LUNG SOUNDS CLEAR, PATIENT IS HARD OF HEARING WEARS BILAT HEARING AID BUT WA SLEFT AT HOME, WEARS O2 2LPM AT NIGHT, PATIENT PLACED ON PUREWICK, ORIENTED TO ROOM AND CALL LIGHT SYSTEM, CALL LIGHT IN REACHED,BED ALARM INPLACED.
--- NOTE | 2024-05-23 03:54 | NUR ---
YARELI RESTING IN BED. REMAINS ON O2 @ 2LPM VIA NC NOT IN DISTRESS, NO DISCOMFORTS NOTED AT THIS TIME.
[2024-05-23] MEDS ORDERED: LEVOTHYROXINE SODIUM 125 MCG/TAB PO SCH (06:00)
--- NOTE | 2024-05-23 07:00 | NUR ---
SHIFT CHANGE REPORT, PT SLEEPING, BREATHING EVEN AND NON-LABORED ON 2L O2, IVF INFUSING, CALL JIMENEZ IN REACH AND BED LOCKED IN LOWEST POSITION.
[2024-05-23 08:28] LABS: ALBUMIN 3.7 g/dL (3.2-5.0); BILIRUBIN, TOTAL 0.5 mg/dL (0.02-1.3); CREATININE 1.2 mg/dL (0.5-1.0); TOTAL PROTEIN 6.7 g/dL (6.3-8.2)
--- NOTE | 2024-05-23 08:30 | NUR ---
AWAKE AND ALERT, C/O BACK PAIN @ 10/04, ISSUE ADDRESSED, PUREWICK CATHETER IN PLACE.
[2024-05-23 08:36] LABS: MAGNESIUM 2.5 mg/dL (1.6-2.3); POTASSIUM 5.3 mmol/l (3.5-5.1)
[2024-05-23] MEDS ORDERED: DOCUSATE SODIUM 100 MG/CAP PO SCH (09:00)
[2024-05-23] MEDS ORDERED: ALLOPURINOL 100 MG/TAB PO SCH (09:00)
[2024-05-23] MEDS ORDERED: Polyethylene Glycol 3350 17 GM/PKT PO PRN (11:30)
[2024-05-23] MEDS ORDERED: LIDOCAINE 4 % PATCH TD SCH (12:00)
--- NOTE | 2024-05-23 12:22 | NUR ---
DAUGHTER BHAVIK CALLED TO INQUIRE ABOUT CONDITION AND PLANS, INFORMED OF PHYSICAL THERAPIST'S RECOMMENDATION FOR REHAB, ASKED ABOUT SURGICAL PROCEDURE AND ORTHOPEDIC CONSULT, WILL BE VISITING LATER TO DISCUSS PLANS WITH CM.
--- NOTE | 2024-05-23 20:41 | NUR ---
PATIENT LYING IN BED RESTING. ASSESSMENT COMPLETED. PATIENT ALERT AND ORIENTED X 3. C/O BACK PAIN OF A 10, WILL MEDICATE ACCORDING TO EMAR. LUNGS CLEAR TO ASCULTATION. BREATHING EVEN AND UNLABORED ON 2L NC, NOT HOME DEPENDENT. LBM 05/21, PATIENT GIVEN MIRALAX IN AM. LIDOCAINE PATCH TO BE REMOVED AT 0000. BRUISE NOTED TO NEGRITA, ERYTHEMA NOTED IN NADIR AREA AND BETWEEN FOLDS. NO ADDITIONAL CONCERNS AT THIS TIME. SAFETY MEASURES IN PLACE INCLUDING BED LOCKED AND IN LOW POSITION AND CALL LIGHT RESTING IN R HAND. NO APPARENT DISTRESS NOTED. WILL CONTINUE WITH PLAN OF CARE.
--- NOTE | 2024-05-24 | NUR ---
PATIENT APPEARS TO BE RESTING WITH EYES CLOSED. LIDOCAINE PATCH REMOVED. NO APPARENT DISTRESS NOTED. WILL CONTINUE WITH PLAN OF CARE.
--- NOTE | 2024-05-24 04:00 | NUR ---
PATIENT APPEARS TO BE RESTING WITH EYES CLOSED. RISE AND FALL OF CHEST NOTED. NO APPARENT DISTRESS. WILL CONTINUE WITH PLAN OF CARE.
[2024-05-24 04:56] VITALS: BP 129/73
[2024-05-24 05:20] LABS: BASO% 0.1 % (0-3); EOS% 0.5 % (0-8); HEMATOCRIT 37.8 % (37.0-47.0); HEMOGLOBIN 12.2 g/dl (12.0-16.0); IMMATURE GRANULOCYTES 0.3 % (0.0-5.0); LYMPH% 30.4 % (15-41); MEAN CELL VOLUME 106.5 fL CALC (80.0-100.0); MEAN CORPUSCULAR HGB 34.4 pG CALC (26.0-32.0); MEAN CORPUSCULAR HGB CONC 32.3 g/dL CAL (32.0-36.0); MONO% 9.7 % (2-13); NEUT# 4.63 thou/uL (2.00-7.15); RED BLOOD COUNT 3.55 mill/uL (4.20-5.60); RED CELL DISTRI WIDTH 14.2 % (11.5-15.5)
[2024-05-24 05:44] LABS: ALBUMIN 3.2 g/dL (3.2-5.0); BILIRUBIN, TOTAL 0.5 mg/dL (0.02-1.3); CREATININE 1.1 mg/dL (0.5-1.0); MAGNESIUM 2.4 mg/dL (1.6-2.3); POTASSIUM 4.9 mmol/l (3.5-5.1)
[2024-05-24 07:54] VITALS: BP 132/75
--- NOTE | 2024-05-24 08:00 | NUR ---
PT IS FOUND TO BE RESTING COMFORTABLY IN BED. PT IS A&OX2; STABLE. PT IS ABLE TO MOVE ALL EXTREMITES- GEN. WEAKNESS. X1 OOB. PT IS ABLE TO MAKE HER NEEDS KNOWN. PLAN OF CARE WAS REVIEWED; NO FURTHER QUESTIONS AT THIS TIME. CALL LIGHT IS WITHIN REACH; BED ALARM IS ON.
[2024-05-24] MEDS ORDERED: traMADol HCL 50 MG/TAB PO SCH (11:00)
--- NOTE | 2024-05-24 12:00 | NUR ---
pt's condition reamins the same; she is in the chair and comfortable. call light is within reach
[2024-05-24 14:39] VITALS: BP 106/60
--- NOTE | 2024-05-24 16:00 | NUR ---
pt's condition remains the same; call light is within reach.
[2024-05-24 18:40] VITALS: BP 119/54
--- NOTE | 2024-05-24 20:00 | NUR ---
Report received from dayshift nurse. Patient watching tv reports she had "a good day". RN asked if patient had any request, to which patient replied "no". Patient oriented to call light function and educated to call for assistance. Patient is AOx4. Bed alarm is on. IV fluid infusing. VS WNL
--- NOTE | 2024-05-25 | NUR ---
Patient sleeping. VS WNL. Bed alarm on. Call light within reach.
--- NOTE | 2024-05-25 02:00 | NUR ---
Patient used call light to ask RN for pain medication. Pain is 9/10 on her back. Patient current IV occluded and not flushing. IV was discontinnued by RN and a new one started. IV pain medication PRN given.
[2024-05-25 04:00] VITALS: BP 125/66
--- NOTE | 2024-05-25 04:48 | NUR ---
Patient sleeping. VS WNL. Bed alarm on. Call light within reach
[2024-05-25 05:42] LABS: BASO% 0.3 % (0-3); EOS% 1.8 % (0-8); HEMATOCRIT 38.9 % (37.0-47.0); HEMOGLOBIN 12.5 g/dl (12.0-16.0); IMMATURE GRANULOCYTES 0.1 % (0.0-5.0); LYMPH% 28.4 % (15-41); MEAN CELL VOLUME 106.3 fL CALC (80.0-100.0); MEAN CORPUSCULAR HGB 34.2 pG CALC (26.0-32.0); MEAN CORPUSCULAR HGB CONC 32.1 g/dL CAL (32.0-36.0); MONO% 9.5 % (2-13); NEUT# 4.44 thou/uL (2.00-7.15); NEUT% 59.9 % (42-76); RED BLOOD COUNT 3.66 mill/uL (4.20-5.60)
[2024-05-25 05:53] LABS: ALBUMIN 3.3 g/dL (3.2-5.0); BILIRUBIN, TOTAL 0.6 mg/dL (0.02-1.3); MAGNESIUM 2.2 mg/dL (1.6-2.3); TOTAL PROTEIN 6.1 g/dL (6.3-8.2)
[2024-05-25 05:54] LABS: POTASSIUM 5.4 mmol/l (3.5-5.1)
[2024-05-25 07:07] VITALS: BP 154/70
--- NOTE | 2024-05-25 08:00 | NUR ---
PT WAS FOUND RESTING COMFORTABLY IN BED. PT IS A&O X4; STAB;E. NO TELE. INTERMITTENT 2L O2. PATIENT CAN MOVE ALL EXTREMITES; VERY WEAK- X2 OOB AND TO THE BSC. PLAN OF CARE WAS REVIEWED; NO FURTHER QUESTIONS AT THIS TIME. CALL LIGHT IS WITHIN REACH. BED ALARM IS ON.
[2024-05-25] MEDS ORDERED: Polyethylene Glycol 3350 17 GM/PKT PO SCH (09:00)
[2024-05-25] MEDS ORDERED: LIDOCAINE PAIN RE4 % TD (11:13)
[2024-05-25] MEDS ORDERED: TRAMADOL HYDROC50 M1 PO (11:13)
[2024-05-25] MEDS ORDERED: CIPROFLOXACN250 M1 PO (11:16)
--- NOTE | 2024-05-25 12:00 | NUR ---
PT'S CONDITION REMAINS THE SAME. PT IS IN THE CAHIR. CALL LIGHT IS WITHIN REACH; BED ALARM IS ON.
[2024-05-25] MEDS ORDERED: LACTULOSE 20 GM/30 ML UDC PO SCH (15:05)
--- NOTE | 2024-05-25 16:00 | NUR ---
PT'S CONDITION REMAINS THE SAME. AT 1413, THIS RN NOTIFIED THE PROVIDER THAT PT WAS RETAINING URINE. LEMUEL PURDY INSTRUCTED TO PLACE A BENSON. THIS RN RECIEVED 1300 ML OF URINE AND PLACED AN INDWELLING 16FR BENSON. NO FURTHER NEEDS AT THIS TIME. CALL LIGHT IS WIHTIN REACH; BED ALARM IS ON.
[2024-05-25 19:26] VITALS: BP 133/71
--- NOTE | 2024-05-25 19:30 | NUR ---
PATIENT LYING IN BED WATCHING TV. ASSESSMENT COMPLETED. PATIENT ALERT AND ORIENTED X 4. C/O BACK PAIN OF A 6, RECENTLY MEDICATED ACCORDING TO EMAR. LUNGS CLEAR TO ASCULTATION. BREATHING EVEN AND UNLABORED ON ROOM AIR. STRONG PERIPHERAL PULSES. 20G RAC PATENT. DENIES CONCERNS AT THIS TIME. SAFETY MEASURES IN PLACE INCLUDING BED LOCKED AND IN LOW POSITION WITH CALL LIGHT RESTING NEXT TO R HAND. NO APPARENT DISTRESS. WILL CONTINUE WITH PLAN OF CARE.
--- NOTE | 2024-05-26 | NUR ---
PATIENT APPEARS TO BE RESTING WITH EYES CLOSED. RISE AND FALL OF CHEST NOTED. NO APPARENT DISTRESS. WILL CONTINUE WITH PLAN OF CARE.
[2024-05-26 04:14] VITALS: BP 142/83
--- NOTE | 2024-05-26 04:17 | NUR ---
PATIENT C/O FEELING NAUSEOUS. PATIENT STATES THAT THIS IS NOT ABNORMAL FOR HER AND STATES DRINKING COLD WATER OFFERS RELIEF. PATIENT PROVIDED FRESH WATER REQUESTED. PATIENT C/O PAIN AT A 9, WILL MEDICATE ACCORDING TO EMAR. NO ADDITIONAL CONCERNS AT THIS TIME. WILL CONTINUE WITH PLAN OF CARE.
[2024-05-26 07:44] VITALS: BP 133/69
--- NOTE | 2024-05-26 08:00 | NUR ---
PT IS FOUND TO BE RESTING IN BED. PT IS A&O X4; STABLE. PATIENT COMPLAINS OF PAIN AFTER DILAUDID AND TRAMADOL; WILL LET MD KNOW. PT CAN MOVE ALL EXTREMITES BUT IS VERY WEAK. PLAN OF CARE WAS REVIEWED; NO FURTHER QUESTIONS AT THIS TIME. CALL LIGHT IS WITHIN REACH; BED ALARM IS ON.
--- NOTE | 2024-05-26 14:58 | NUR ---
Discharge instructions given. Patient verbalizes understanding of same. Discharged in stable condition via Wheelchair to Home with family. All belongings sent with pt. IV OUT AND NO TELE.
== END 2024-05-26 13:22 | disposition home or self-care (01) | DRG 543 ==
LOC: ED 12:36 → ED-I 18:44 → ED 18:59 → MS2 19:00
PROVIDERS: Family Medicine; Nurse Practitioner Family; ADMIT Internal Medicine; ATTEND Internal Medicine
PROC: 0T9B70Z Drainage of Bladder with Drainage Device, Via Natural or Artificial Opening (ICD-10-PCS; principal; 2024-05-25)
DX: M48.56XA Collapsed vertebra, not elsewhere classified, lumbar region, initial encounter for fracture (principal); N17.9 Acute kidney failure, unspecified; N39.0 Urinary tract infection, site not specified; B96.1 Klebsiella pneumoniae [K. pneumoniae] as the cause of diseases classified elsewhere; E86.0 Dehydration; I12.9 Hypertensive chronic kidney disease with stage 1 through stage 4 chronic kidney disease, or unspecified chronic kidney disease; E11.22 Type 2 diabetes mellitus with diabetic chronic kidney disease; N18.9 Chronic kidney disease, unspecified; I25.10 Atherosclerotic heart disease of native coronary artery without angina pectoris; R33.9 Retention of urine, unspecified; E03.9 Hypothyroidism, unspecified; Z95.1 Presence of aortocoronary bypass graft; Z95.0 Presence of cardiac pacemaker; Z88.9 Allergy status to unspecified drugs, medicaments and biological substances
CPT/HCPCS: J0696; J1171; J1200; J1650; J1815; J1885; J2360; Q9967